=== PATIENT | female | born 1955 ===

== ENCOUNTER 2017-06-27 09:42 | Emergency (ER) | payer OTHER ==
[2017-06-27 09:54] VITALS: BP 150/91; PULSE 75; TEMP 98; BMI 32.3
[2017-06-27] MEDS ORDERED: MECLIZINE HCL 25 MG TABLET (FP) PO ONE (12:03)
[2017-06-27] MEDS ORDERED: SODIUM CHLORIDE 1,000 ML IV STA (12:04)
[2017-06-27] MEDS ORDERED: MECLIZINE HCL 25 MG TABLET (FP) ONE (12:05)
--- NOTE | 2017-06-27 12:09 | PDOC ---
History of Present Illness - General Chief Complaint: Lightheaded Stated Complaint: DIZZINESS Time Seen by Provider: 06/27/17 11:48 History Source: Patient - History of Present Illness Timing/Duration: other (this am) Associated Symptoms: reports: nausea/vomiting. denies: headaches Past History - Past Medical History Allergies/Adverse Reactions: Allergies Allergy/AdvReac Type Severity Reaction Status Date / Time No Known Allergies Allergy Verified 06/27/17 09:51 Home Medications: Ambulatory Orders Meclizine HCl [Antivert -] 25 mg PO TID PRN #30 tablet 06/27/17 COPD: No Other medical history: denies - Suicide/Smoking/Psychosocial Hx Smoking History: Never smoked Have you smoked in the past 12 months: No Information on smoking cessation initiated: No Hx Alcohol Use: No Drug/Substance Use Hx: No Substance Use Type: None Review of Systems - Review of Systems Constitutional: No: Chills, Fever Respiratory: No: Shortness of Breath Cardiac (ROS): No: Chest Pain ABD/GI: Yes: Nausea. No: Vomiting Neurological: Yes: Dizziness. No: Headache, Numbness, Tingling, Weakness *Physical Exam - Vital Signs Last Vital Signs Temp Pulse Resp BP Pulse Ox 98 F 75 20 150/91 98 06/27/17 09:52 06/27/17 09:52 06/27/17 09:52 06/27/17 09:52 06/27/17 09:52 - Physical Exam General Appearance: Yes: Appropriately Dressed. No: Apparent Distress HEENT: positive: Normal Voice Neck: positive: Supple Respiratory/Chest: negative: Lungs Clear, Normal Breath Sounds, Respiratory Distress Integumentary: positive: Dry, Warm Neurologic: positive: Fully Oriented, Alert, Normal Mood/Affect, Motor Strength 5/5. negative: Facial Droop, Confused (no nystagmus, Terry intact, no drift, no ataxia), Disoriented Heart Score/ECG Review - ECG Intrepretation Comment:: 06/27/17 14:51 Twelve-lead EKG was performed and reviewed by me. There is normal sinus rhythm with a normal rate. The axis is normal. The intervals are normal. There are no ST or T wave abnormalities. Impression: Normal twelve-lead EKG ED Treatment Course - LABORATORY CBC & Chemistry Diagram: 06/27/17 12:00 06/27/17 12:15 Medical Decision Making - Medical Decision Making 06/27/17 12:04 61 yo F, denies any past medical history here with dizziness. As per patient, was in usual state of health until this morning about 4:30 AM when while still laying in bed, suddenly felt the room spinning and states she was unable to get out of bed due to same. States when she finally got out of bed, felt better, but states her head "does not feel right" and that she is lightheaded now. Also complaining of nausea, no vomiting, headache, visual changes, focal weakness, chest pain or shortness of breath. No recent URI symptoms. Patient states she had similar episode couple years ago and told it was "something with my ear". Does not remember if she was given medication per patient. See exam Vertigo M/l peripheral as no focal neuro deficits, unlikely cardiac -ekg -CT -labs -meclizine -reassess 06/27/17 14:[address] unremarkable. Patient states dizziness has since resolved with meclizine and well appearing, currently texting on her phone. Stable for discharge at this time with neurology follow-up *DC/Admit/Observation/Transfer Diagnosis at time of Disposition: Vertigo - Discharge Dispostion Disposition: HOME Condition at time of disposition: Improved - Prescriptions Prescriptions: Meclizine HCl [Antivert -] 25 mg PO TID PRN #30 tablet PRN Reason: Vertigo - Referrals Referrals: Gary Tirado MD [Staff Physician] - - Patient Instructions Printed Discharge Instructions: Vertigo Additional Instructions: Take meclizine as directed and follow-up with Dr. Tirado of neurology. If symptoms worsen, return to ER immediately - Post Discharge Activity
[2017-06-27 12:25] LABS: BASO % 0.4 % (0-2.0); EOS % 0.9 % (0-4.5); HEMATOCRIT 41.7 % (32.4-45.2); HEMOGLOBIN 13.4 GM/dL (10.7-15.3); LYMPH % 39.5 % (8-40); MCH 28.7 pg (25.7-33.7); MCHC 32.2 g/dl (32.0-36.0); MEAN CELL VOLUME 89.3 fl (80-96); MEAN PLT VOLUME 7.6 fl (7.5-11.1); MONO % 3.6 % (3.8-10.2); NEUT % 55.6 % (42.8-82.8); PLATELET COUNT 337 K/MM3 (134-434); RBC 4.67 M/mm3 (3.60-5.2); RDW 12.9 % (11.6-15.6); WHITE BLOOD COUNT 7.4 K/mm3 (4.0-10.0)
[2017-06-27 12:29] LABS: URINE APPEARANCE CLEAR; URINE BILIRUBIN NEGATIVE (NEGATIVE); URINE BLOOD NEGATIVE (NEGATIVE); URINE COLOR LTYELLOW; URINE GLUCOSE (UA) NEGATIVE (NEGATIVE); URINE KETONE NEGATIVE (NEGATIVE); URINE NITRITE NEGATIVE (NEGATIVE); URINE PROTEIN NEGATIVE (NEGATIVE); URINE UROBILINOGEN NEGATIVE mg/dL (0.2-1.0)
[2017-06-27 12:33] LABS: URINE LEUK ESTERASE 1+ (NEGATIVE)
[2017-06-27 12:59] LABS: ALBUMIN 3.7 g/dl (3.4-5.0); ANION GAP 8 (8-16); BILIRUBIN,TOTAL 0.2 mg/dL (0.2-1.0); BLOOD UREA NITROGEN 17 mg/dL (7-18); CALCIUM 8.6 mg/dL (8.5-10.1); CHLORIDE 105 mmol/L (98-107); CO2 28 mmol/L (21-32); CREATININE 0.7 mg/dL (0.55-1.02); GLUCOSE,RANDOM 100 mg/dL (74-106); SGPT/ALT 30 U/L (12-78); SODIUM 141 mmol/L (136-145); TOT PROT 7.5 g/dl (6.4-8.2)
[2017-06-27 13:01] LABS: ALK PHOS 129 U/L (45-117)
[2017-06-27 13:04] LABS: EPI CELLS RARE /HPF (FEW); URINE MUCUS RARE
[2017-06-27 13:05] LABS: SGOT/AST 23 U/L (15-37)
[2017-06-27 13:06] LABS: POTASSIUM 4.5 mmol/L (3.5-5.1)
--- NOTE | 2017-06-28 12:21 | EKG ---
Test Reason : Blood Pressure : / mmHG Vent. Rate : 067 BPM Atrial Rate : 067 BPM P-R Int : 154 ms QRS Dur : 084 ms QT Int : 428 ms P-R-T Axes : 071 056 044 degrees QTc Int : 452 ms POOR DATA QUALITY, INTERPRETATION MAY BE ADVERSELY AFFECTED NORMAL SINUS RHYTHM NORMAL ECG NO PREVIOUS ECGS AVAILABLE Confirmed by MD ZACH, JANAK ([id number]) on 06/28/2017 12:20:45 PM Referred By: Confirmed By:JANAK SERRANO MD
== END 2017-06-27 14:59 | disposition home or self-care (01) ==
LOC: JER 09:42
PROC: 3E0337Z Introduction of Electrolytic and Water Balance Substance into Peripheral Vein, Percutaneous Approach (ICD-10-PCS; principal; 2017-06-27)
DX: R42 Dizziness and giddiness (principal)
CPT/HCPCS: 36415; 70450-TC; 80053; 81003; 81015; 82550; 84484; 85025; 93005; 93010; 99283-25